=== PATIENT | female | born 1980 | race Caucasian/White ===

== ENCOUNTER → 2021-03-17 | Outpatient (CLI) | payer OTHER ==
[2015-09-17 02:00] VITALS: BP 199/116
--- NOTE | 2021-03-17 15:14 | KCIC ---
MRI of the cervical spine without contrast 03/17/2021 CLINICAL HISTORY: Cervical radiculopathy. Left arm pain and numbness. TECHNIQUE: Unenhanced T1-weighted, T2-weighted and inversion recovery sagittal and gradient echo and T2-weighted axial images of the cervical spine were obtained. FINDINGS: There is straightening of the normal cervical lordosis. Degenerative signal changes are see n involving all of the disks of the cervical spine. Degenerative signal changes are seen within the m arrow surrounding these discs. Loss of height of the C6-7 discs is noted. No area of abnormal signal intensity is seen involving the cervical spinal cord. At the C2-3, C3-4, C4-5 and C5-6 disc spaces there are minimal to mild generalized disc bulges. Degen erative changes are seen involving the uncovertebral and facet joints bilaterally. These findings do not result in significant central spinal canal or neural foraminal stenosis. At the C6-7 disc space there is a mild generalized disc bulge. Superimposed on this disc bulge is a l eft paracentral focal disc herniation. This measures 5 mm in AP diameter. Degenerative changes are se en involving the facet joints and uncovertebral joints bilaterally. These findings results in severe left lateral central spinal canal stenosis. Moderate proximal left neural foraminal stenosis is seen. The right neural foramen is patent. At the C7-T1 disc space there is a minimal generalized disc bulge. Degenerative changes are seen invo lving the facet joints bilaterally. These findings do not result in significant central spinal canal or neural foraminal stenosis. IMPRESSION: Degenerative changes are seen throughout the cervical spine. At the C6-7 disc space a lef t paracentral focal disc herniation is seen. This results in severe left lateral central spinal canal stenosis and moderate proximal left neural foraminal stenosis. Electronically signed by: Larry Carreno MD (03/17/2021 3:12 PM) [id number]
== END ==
LOC: KCIC MRI 10:43
PROVIDERS: ATTEND Family Medicine
DX: M47.22 Other spondylosis with radiculopathy, cervical region (principal); M48.02 Spinal stenosis, cervical region
CPT/HCPCS: 72141